=== PATIENT | female | born 1980 | race Caucasian/White ===

== ENCOUNTER 2016-06-26 18:03 | Emergency (ER) | payer OTHER ==
[~2016-06-26] VITALS: Ht 160 cm; Wt 95.1 kg
[~2016-06-26 18:03] MED LIST: IBUP800 PO; LORTA10 PO; METH5SOL3 PO; MULTCAP13 PO
[2016-06-26 18:11] VITALS: BP 145/94; PULSE 106; RESP 16; TEMP 98.3; O2SAT 98
[2016-06-26] MEDS ORDERED: METH40TA PO (19:12)
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
[2016-06-26] MEDS ORDERED: NAPR500 PO ×2 (19:35→20:52)
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
[2016-06-26 21:09] VITALS: BP 138/96
== END 2016-06-26 21:11 | disposition home or self-care (01) ==
LOC: PHEFT 18:03
DX: M25.571 Pain in right ankle and joints of right foot (principal); F17.210 Nicotine dependence, cigarettes, uncomplicated; V43.52XA Car driver injured in collision with other type car in traffic accident, initial encounter
CPT/HCPCS: 73610; 99284; L1906